=== PATIENT | male | born 1940 | race Caucasian/White ===

== ENCOUNTER 2017-05-23 09:51 | Emergency (ER) | payer MEDICARE, BC ==
[2017-05-23] MEDS ORDERED: Sodium Chloride 0.9% 10 ML Syringe FLUSH PRN ×2 (10:51)
--- NOTE | 2017-05-23 11:00 | EDM.PDOC ---
ED HPI GENERAL MEDICAL PROBLEM - General Chief Complaint: Neuro Symptoms/Deficits Stated Complaint: maybe a stroke??? Time Seen by Provider: 05/23/17 10:44 Source of Information: Reports: Patient, Family, RN Notes Reviewed History Limitations: Reports: No Limitations - History of Present Illness INITIAL COMMENTS - FREE TEXT/NARRATIVE: 77-year-old gentleman presents emergency department day with right arm weakness , he does have a history of CVA in the past however he had no deficit from that. Unfortunately he started experiencing symptoms at about 2300 last evening a presents to the emergency department today now 12 hours out from his initial deficit he has some movement in the right arm but he cannot lift it past 20 and he has a wrist drop. Denies any other symptoms - Related Data Allergies Allergy/AdvReac Type Severity Reaction Status Date / Time oxycodone AdvReac Severe Confusion Verified 07/30/16 14:17 Home Meds: Home Meds Aspirin [Halfprin] 81 mg PO DAILY 07/03/13 [History] Dutasteride [Avodart] 0.5 mg PO DAILY 07/03/13 [History] Hydrochlorothiazide/Lisinopril [Lisinopril-HCTZ 20-12.5 MG] 1 tab PO DAILY 07/03 [History] Metoprolol Succinate [Toprol XL 100mg] 100 mg PO DAILY 07/03/13 [History] Simvastatin [Zocor] 40 mg PO BEDTIME 07/03/13 [History] Warfarin [Coumadin] 1.5 tab PO DAILY 07/03/13 [History] Docusate Sodium [Colace] 100 mg PO BID 10/28/15 [History] Furosemide [Furosemide] 20 mg PO DAILY 05/23/17 [History] Past Medical History HEENT History: Reports: Cataract, Hard of Hearing, Impaired Vision Cardiovascular History: Reports: Afib, Arrhythmia, High Cholesterol, Hypertension Genitourinary History: Reports: Prostate Disorder Musculoskeletal History: Reports: Arthritis Neurological History: Reports: Concussion, TIA Hematologic History: Reports: Anticoagulation Therapy Oncologic (Cancer) History: Reports: Prostate - Infectious Disease History Infectious Disease History: Reports: Chicken Pox, Measles - Past Surgical History HEENT Surgical History: Reports: Cataract Surgery GI Surgical History: Reports: Colonoscopy Musculoskeletal Surgical History: Reports: Knee Replacement Social & Family History - Tobacco Use Smoking Status *Q: Never Smoker Second Hand Smoke Exposure: No - Caffeine Use Caffeine Use: Reports: Coffee - Alcohol Use Days Per Week of Alcohol Use: 1 Number of Drinks Per Day: 3 Total Drinks Per Week: 3 - Recreational Drug Use Recreational Drug Use: No ED ROS GENERAL - Review of Systems Review Of Systems: See Below Constitutional: Reports: No Symptoms HEENT: Reports: No Symptoms Respiratory: Reports: No Symptoms Cardiovascular: Reports: No Symptoms GI/Abdominal: Reports: No Symptoms : Reports: No Symptoms Musculoskeletal: Reports: No Symptoms Skin: Reports: No Symptoms Neurological: Reports: Weakness (Right arm) ED EXAM, NEURO - Physical Exam Exam: See Below Text/Narrative:: General: Male, not in any distress, alert and oriented x3 HEENT: head is atraumatic normocephalic, eyes pupils equal round reactive to light, sclera clear no conjunctivitis appreciated extraocular eye movements are intact. Ears tympanic membranes clear and beck landmarks and light reflex are present bilaterally canals are clear. Nose no septal deviation, nares are clear, no blood present. Mouth mucosa is moist and pink no erythema or exudate noted in soft palate, tongue is midline uvula is midline, dentition is intact. Neck: Supple no thyromegaly no tracheal deviation. Nodes: Cervical nodes subclavicular nodes nontender no palpable lymphadenopathy noted. Lungs: clear to auscultation bilaterally with symmetrical respirations, no adventitious noise appreciated. CV: Irregularly irregular rate and rhythm S1 and S2 appreciated no murmurs rubs or gallops noted. Abdomen: Soft, nontender, no palpable masses or organomegaly appreciated, no distention no guarding bowel sounds are present, . Neuro: Cranial nerves II through XII grossly intact, power is 5 x 5 in upper left extremity and lower extremities, power is 4 out of 5 on the right upper extremity, patellar reflex, biceps reflex +2 no dysdiadochokinesis no difficulty with rapid alternating movements can do [id number] without difficulty , has adequate gait no cerebellar dysfunction modified NIH stroke scale of 2 secondary to right arm deficit Skin: Warm and dry, intact Extremities: No lower extremity edema appreciated, pedal pulse is +2. Course - Vital Signs Last Recorded V/S: Last Vital Signs Temp 96.8 F 05/23/17 10:06 Pulse 84 05/23/17 10:06 Resp 18 05/23/17 10:06 BP 130/70 05/23/17 10:06 Pulse Ox 97 05/23/17 10:06 - Orders/Labs/Meds Orders: Active Orders 24 hr Category Date Time Status EKG Documentation Completion [RC] ASDIRECTED Care 05/23/17 10:52 Active Peripheral IV Care [RC] . DIRECTED Care 05/23/17 10:52 Active Sodium Chloride 0.9% [Saline Flush] Med 05/23/17 10:51 Active 10 ml FLUSH ASDIRECTED PRN Sodium Chloride 0.9% [Saline Flush] Med 05/23/17 10:51 Active 10 ml FLUSH ASDIRECTED PRN Peripheral IV Insertion Adult [OM.PC] Urgent Oth 05/23/17 10:51 Ordered EKG 12 Lead [EK] Urgent Ther 05/23/17 10:51 Ordered Medication Orders Sodium Chloride (Saline Flush) 10 ml FLUSH ASDIRECTED PRN PRN Reason: Keep Vein Open Last Admin: 05/23/17 11:20 Dose: 10 ml Sodium Chloride (Saline Flush) 10 ml FLUSH ASDIRECTED PRN PRN Reason: Keep Vein Open Last Admin: 05/23/17 11:20 Dose: 10 ml Labs: Laboratory Tests 05/23/17 05/23/17 05/23/17 Range/Units 11:06 11:06 11:06 WBC 6.6 (4.5-11.0) K/uL RBC 4.90 (4.30-5.90) M/uL Hgb 17.0 H (12.0-15.0) g/dL Hct 48.7 (40.0-54.0) % MCV 99 H (80-98) fL MCH 35 H (27-31) pg MCHC 35 (32-36) % Plt Count 157 (150-400) K/uL Neut % (Auto) 64 (36-66) % Lymph % (Auto) 22 L (24-44) % [place] % (Auto) 10 H (2-6) % Eos % (Auto) 2 (2-4) % Baso % (Auto) 1 (0-1) % PT 16.9 H (9.5-12.0) sec INR 1.55 H (0.80-1.20) APTT 32.4 (27.0-36.0) sec Sodium 140 (140-148) mmol/L Potassium 4.1 (3.6-5.2) mmol/L Chloride 103 (100-108) mmol/L Carbon Dioxide 32 (21-32) mmol/L Anion Gap 4.8 L (5.0-14.0) mmol/L BUN 29 H D (7-18) mg/dL Creatinine 1.6 H (0.8-1.3) mg/dL Est Cr Clr Drug Dosing 42.49 mL/min Estimated GFR (MDRD) 42 L (>60) Glucose 110 H (74-106) mg/dL Calcium 9.0 (8.5-10.1) mg/dL Total Bilirubin 1.2 H (0.2-1.0) mg/dL AST 29 (15-37) U/L ALT 30 (12-78) U/L Alkaline Phosphatase 101 (46-116) U/L Total Protein 7.9 (6.4-8.2) g/dL Albumin 3.5 (3.4-5.0) g/dL Globulin 4.4 H (2.3-3.5) g/dL Albumin/Globulin Ratio 0.8 L (1.2-2.2) Meds: Medications Generic Name Dose Route Start Last Admin Trade Name Freq PRN Reason Stop Dose Admin Sodium Chloride 10 ml 05/23/17 10:51 05/23/17 11:20 Saline Flush FLUSH 10 ml ASDIRECTED PRN Administration Keep Vein Open Sodium Chloride 10 ml 05/23/17 10:51 05/23/17 11:20 Saline Flush FLUSH 10 ml ASDIRECTED PRN Administration Keep Vein Open Departure - Departure Time of Disposition: 12:56 Disposition: DC/Tfer to Acute Hospital 02 Condition: Fair Clinical Impression: Cerebral infarction Qualifiers: Cerebral infarction mechanism: unspecified mechanism Qualified Code(s): I63.9 - Cerebral infarction, unspecified - Discharge Information Referrals: Juvenal Lacey MD [Primary Care Provider] - Forms: ED Department Discharge - My Orders Last 24 Hours: My Active Orders 05/23/17 10:51 Sodium Chloride 0.9% [Saline Flush] 10 ml FLUSH ASDIRECTED PRN Sodium Chloride 0.9% [Saline Flush] 10 ml FLUSH ASDIRECTED PRN Peripheral IV Insertion Adult [OM.PC] Urgent EKG 12 Lead [EK] Urgent 05/23/17 10:52 EKG Documentation Completion [RC] ASDIRECTED Peripheral IV Care [RC] . DIRECTED - Assessment/Plan Last 24 Hours: My Active Orders 05/23/17 10:51 Sodium Chloride 0.9% [Saline Flush] 10 ml FLUSH ASDIRECTED PRN Sodium Chloride 0.9% [Saline Flush] 10 ml FLUSH ASDIRECTED PRN Peripheral IV Insertion Adult [OM.PC] Urgent EKG 12 Lead [EK] Urgent 05/23/17 10:52 EKG Documentation Completion [RC] ASDIRECTED Peripheral IV Care [RC] . DIRECTED Plan: Assessment Acuity = acute Site and laterality = left parietal subacute cerebrovascular accident complicating the patient with known history of atrial fibrillation on chronic anticoagulation, history of prior CVA, hypertension and dyslipidemia Etiology = unclear etiology suspicious for subtherapeutic anticoagulation Manifestations = right arm weakness Location of injury = Home Lab values = CBC unremarkable, INR 1.55 subtherapeutic creatinine elevated 1.6 consistent with chronic renal failure stage G IIIB total bilirubin elevated 1.2 consistent hyperbilirubinemia EKG demonstrates atrial fibrillation CT scan demonstrates left parietal subacute infarction with moderate amount of atrophy Plan Called discussed case with Dr. Bradshaw who kindly accepted the patient in transport he will be transported via EMS services ground Patient was in agreement with the plan all questions were answered, This note was dictated using Touch-Writer voice recognition software please call with any questions.
--- NOTE | 2017-05-23 11:20 | CT ---
Head wo Cont HISTORY: Right arm weakness. Dose: Total DLP 934. COMPARISON: None FINDINGS: Extensive atrophy. 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 In the high left parietal lobe there is more confluent area of low attenuation measuring approximately 3 cm. This could represent subacute ischemia. This may be chronic as well. I have no prior films to confirm stability. There is no acute hemorrhage. No abnormal extra -axial fluid collections. Impression: 1. Extensive atrophy and chronic white matter change in the periventricular region. 2. More confluent area of low attenuation in the left parietal lobe I cannot exclude some subacute is chemia. Consider MRI scan with diffusion weighted images for differentiation. These findings were called to the ER physician at 11:15 AM hours.
[2017-05-23 13:07] VITALS: BP 122/83
== END 2017-05-23 13:25 ==
LOC: JP.ED 09:51
DX: I63.9 Cerebral infarction, unspecified (principal); I48.91 Unspecified atrial fibrillation; I10 Essential (primary) hypertension; M19.90 Unspecified osteoarthritis, unspecified site; E78.00 Pure hypercholesterolemia, unspecified; Z85.46 Personal history of malignant neoplasm of prostate; Z98.49 Cataract extraction status, unspecified eye; Z96.659 Presence of unspecified artificial knee joint; Z79.01 Long term (current) use of anticoagulants; Z79.82 Long term (current) use of aspirin; Z79.899 Other long term (current) drug therapy; Z88.5 Allergy status to narcotic agent
CPT/HCPCS: 36415; 70450; 80053; 85025; 85610; 85730; 93005; 99285; J7050; 93010

== ENCOUNTER 2019-02-13 07:23 | Day surgery (SDC) | payer BC, MEDICARE ==
[~2019-02-13 07:23] MED LIST: Midazolam 1 MG/ML 2 ML SDV ONE; Propofol 200 MG/20 ML SDV ONE; fentaNYL 100 MCG/2 ML SDV ONE
[2019-02-13] MEDS ORDERED: Sodium Chloride 0.9% 1,000 ML IV SCH (08:15)
[2019-02-13 10:10] VITALS: BP 90/67
--- NOTE | 2019-02-14 08:13 | OR ---
DATE OF PROCEDURE: 02/13/2019 SURGEON: Hernan Breaux MD PREOPERATIVE DIAGNOSIS: Screening/history of gastrointestinal bleeding. POSTOPERATIVE DIAGNOSIS: Screening/history of gastrointestinal bleeding. PROCEDURE: Colonoscopy. FINDINGS: 1. Cecal polyp, approximately 5 mm, completely removed using cold biopsy forceps. 2. Rectal polyp, approximately 1 cm, completely removed using hot snare. 3. Diverticulosis, moderate, extending into transverse colon without evidence of diverticulitis or bleeding. COMPLICATIONS: None. SCIENTIFIC SPECIALIST: None. ANESTHESIA: MAC. RISKS: Risks, benefits, alternatives, and limitations including, but not limited to infection, bleeding, and perforation were explained to the patient and wished to proceed. PROCEDURE IN DETAIL: The patient was placed in left lateral decubitus position. Digital rectal exam was performed without abnormalities, except for small external hemorrhoids. The scope was introduced and advanced atraumatically to the ileocecal valve. A photo was taken of this. Within the cecum, there was a small polyp which was completely removed using cold biopsy forceps. As the scope was moved through the ascending, transverse, descending colon, and retroflexed, a rectal polyp was identified and completely removed using hot snare. Diverticulosis is described as mild, limited to sigmoid colon, and without evidence of diverticulitis or bleeding. The patient tolerated the procedure well. Hernan Breaux MD /[id number]
== END 2019-02-13 10:42 | disposition home or self-care (01) ==
LOC: JP.SDS 07:23
PROVIDERS: ATTEND Surgery
DX: Z12.11 Encounter for screening for malignant neoplasm of colon (principal); D12.0 Benign neoplasm of cecum; D12.8 Benign neoplasm of rectum; K57.30 Diverticulosis of large intestine without perforation or abscess without bleeding; K64.4 Residual hemorrhoidal skin tags; I48.91 Unspecified atrial fibrillation; I12.9 Hypertensive chronic kidney disease with stage 1 through stage 4 chronic kidney disease, or unspecified chronic kidney disease; N18.9 Chronic kidney disease, unspecified; E78.00 Pure hypercholesterolemia, unspecified; Z88.5 Allergy status to narcotic agent; Z86.73 Personal history of transient ischemic attack (TIA), and cerebral infarction without residual deficits
CPT/HCPCS: 45380; 45385; 88305; J2250; J2704; J3010; J7030

== ENCOUNTER 2022-01-09 16:14 | Observation (INO) | payer MEDICARE ==
[2022-01-09] MEDS ORDERED: Sodium Chloride 0.9% 10 ML Syringe FLUSH PRN ×2 (17:14→20:31)
[2022-01-09] MEDS ORDERED: Lactated Ringers 1,000 ML IV SCH (17:15)
[2022-01-09 17:29] LABS: CORONAVIRUS COVID-19 NAA NEGATIVE (NEGATIVE)
[2022-01-09 17:56] LABS: TROPONIN I HIGH SENSITIVITY 19.8 pg/mL (<=60.3)
[2022-01-09] MEDS ORDERED: Sodium Chloride 0.9% 1,000 ML IV SCH (19:00)
[2022-01-09] MEDS ORDERED: Ondansetron 4 MG/2 ML SDV IV PRN (20:31)
[2022-01-09] MEDS: Sodium Chloride 0.9% 1,000 ML IV SCH (20:54)
[2022-01-09] MEDS ORDERED: Non-Formulary Medication 1 Each (Atorvastatin [Lipitor] 80 MG Tablet) PO SCH (21:00)
[2022-01-10] MEDS ORDERED: Potassium Chloride 20 MEQ Tab.ER PO ONE ×2 (09:00→17:00)
[2022-01-10] MEDS ORDERED: Non-Formulary Medication 1 Each (Citalopram Hydrobromide [Celexa] 40 MG Tablet) PO SCH (09:00)
[2022-01-10] MEDS: Sodium Chloride 0.9% 1,000 ML IV SCH (12:55)
[2022-01-10] MEDS: Acetaminophen 325 MG Tab PO PRN ×2 (13:01→23:29)
[2022-01-10] MEDS: DUTASTERIDE 0.5 MG PO SCH (15:56)
[2022-01-10] MEDS: CITALOPRAM 40MG TAB (PTOM) PO SCH (15:56)
[2022-01-10] MEDS: DONEPEZIL 10 MG PO SCH (20:51)
[2022-01-10] MEDS ORDERED: ATORVASTATIN 80MG TAB (PTOM) PO SCH (21:00)
[2022-01-11] MEDS ORDERED: Warfarin 5 MG Tab PO SCH ×2 (08:30)
[2022-01-11] MEDS: DUTASTERIDE 0.5 MG PO SCH (10:36)
[2022-01-11] MEDS: CITALOPRAM 40MG TAB (PTOM) PO SCH (10:37)
[2022-01-11 11:01] VITALS: BP 122/84; PULSE 72
[2022-01-11] MEDS ORDERED: Warfarin 2.5 MG Tab PO ONE (13:00)
[2022-01-11] MEDS ORDERED: Metoprolol Succinate 50 MG Tab.ER PO SCH (13:00)
== END 2022-01-11 16:09 | disposition home or self-care (01) ==
LOC: JP.ED 16:14 → JP.MS 18:17
PROVIDERS: ADMIT Hospitalist; ATTEND Hospitalist
DX: A08.4 Viral intestinal infection, unspecified (principal); E86.0 Dehydration; I95.9 Hypotension, unspecified; E78.00 Pure hypercholesterolemia, unspecified; I10 Essential (primary) hypertension; I48.91 Unspecified atrial fibrillation; E66.9 Obesity, unspecified; Z86.73 Personal history of transient ischemic attack (TIA), and cerebral infarction without residual deficits; Z98.890 Other specified postprocedural states; Z88.5 Allergy status to narcotic agent; Z79.899 Other long term (current) drug therapy; Z79.01 Long term (current) use of anticoagulants; Z20.822 Contact with and (suspected) exposure to COVID-19
CPT/HCPCS: 0241U; 36415; 73502-26-RT; 73502-RT; 80048; 80053; 83605; 84145; 84484; 85025; 85610; 86140; 97110-GP; 97162-GP; 97530-GP; 97535-GP; 99283; 99285-25; A9270-GY; G0378; J3430; J3490; J7030; J7120

== ENCOUNTER 2022-01-20 14:39 | Inpatient (IN) | payer MEDICARE ==
[2022-01-20] MEDS ORDERED: Sodium Chloride 0.9% 500 ML IV ONE (15:33)
[2022-01-20] MEDS ORDERED: Ondansetron 4 MG/2 ML SDV IVPUSH ONE (15:49)
[2022-01-20] MEDS ORDERED: fentaNYL 50 MCG/ML SDV IVPUSH ONE (15:49)
[2022-01-20] MEDS: Sodium Chloride 0.9% 10 ML Syringe FLUSH PRN (16:09)
[2022-01-20 16:11] LABS: TROPONIN I HIGH SENSITIVITY 9.9 pg/mL (<=60.3)
[2022-01-20] MEDS ORDERED: HYDROmorphone 0.5 MG/0.5 ML Syringe IVPUSH ONE (16:32)
[2022-01-20] MEDS ORDERED: Ampicillin/Sulbactam Na 3 GM in Sodium Chloride 0.9% 100 ML IV ONE (16:33)
[2022-01-20 18:29] LABS: CORONAVIRUS COVID-19 NAA NEGATIVE (NEGATIVE)
[2022-01-20] MEDS ORDERED: LORazepam 2 MG/ML SDV IVPUSH PRN (19:10)
[2022-01-20] MEDS ORDERED: Acetaminophen 325 MG Tab PO PRN (19:10)
[2022-01-20] MEDS ORDERED: Ondansetron 4 MG Tab.DIS PO PRN (19:10)
[2022-01-20] MEDS ORDERED: Sodium Chloride 0.9% 1,000 ML IV SCH (19:10)
[2022-01-20] MEDS ORDERED: Magnesium Hydroxide 400 MG/5 ML Susp 30 ML Cup PO PRN (19:10)
[2022-01-20] MEDS ORDERED: Phytonadione 5 MG in Sodium Chloride 0.9% 50 ML IV ONE (19:10)
[2022-01-20] MEDS ORDERED: Potassium Chloride 20 MEQ, Lidocaine 1% 2 ML in Sodium Chloride 0.9% 100 ML IV SCH (19:30)
[2022-01-20] MEDS ORDERED: Pantoprazole 40 MG Vial IV SCH (20:00)
[2022-01-20] MEDS ORDERED: Potassium Chloride 20 MEQ in Premix Bag 2 BAG IV ONE (20:36)
[2022-01-20] MEDS: atorvaSTATin 20 MG Tab PO SCH (21:28)
[2022-01-20] MEDS: Lactobacillus Rhamnosus GG (Probiotic) Cap PO SCH (21:29)
[2022-01-20] MEDS: Lidocaine 1% 5 ML VIAL INJECT PRN (21:30)
[2022-01-20] MEDS: Potassium Chloride 20 MEQ in Premix Bag 1 BAG IV SCH (21:30)
[2022-01-20] MEDS: Melatonin 3 MG Tab PO SCH (21:31)
[2022-01-20] MEDS: HYDROmorphone 1 MG/ML Syringe IVPUSH PRN (22:16)
[2022-01-20] MEDS: Ondansetron 4 MG/2 ML SDV IV PRN (22:26)
[2022-01-20] MEDS: Ampicillin/Sulbactam Na 3 GM in Sodium Chloride 0.9% 100 ML IV SCH (23:28)
[2022-01-21] MEDS: Potassium Chloride 20 MEQ in Premix Bag 1 BAG IV SCH (00:06)
[2022-01-21] MEDS: Lidocaine 1% 5 ML VIAL INJECT PRN (00:06)
[2022-01-21] MEDS: HYDROmorphone 1 MG/ML Syringe IVPUSH PRN ×3 (01:43→10:36)
[2022-01-21] MEDS: Ampicillin/Sulbactam Na 3 GM in Sodium Chloride 0.9% 100 ML IV SCH ×4 (04:58→23:52)
[2022-01-21] MEDS ORDERED: Bupivacaine 0.5% 50 ML MDV ONE (07:19)
[2022-01-21] MEDS ORDERED: Lidocaine 1% with EPINEPHrine 1:100,000 50 ML MDV ONE (07:20)
[2022-01-21] MEDS ORDERED: Succinylcholine 200 MG/10 ML MDV ONE (07:29)
[2022-01-21] MEDS ORDERED: Ondansetron 4 MG/2 ML SDV ONE (07:29)
[2022-01-21] MEDS ORDERED: Dexamethasone 4 MG/ML SDV ONE (07:29)
[2022-01-21] MEDS ORDERED: Neostigmine Methylsulfate 1 MG/ML 5 ML Syringe ONE (07:29)
[2022-01-21] MEDS: Sodium Chloride 0.9% 10 ML Syringe FLUSH PRN (07:29)
[2022-01-21] MEDS ORDERED: Propofol 200 MG/20 ML SDV ONE (07:29)
[2022-01-21] MEDS ORDERED: Rocuronium 50 MG/5 ML Vial ONE (07:29)
[2022-01-21] MEDS ORDERED: Glycopyrrolate 0.2 MG/ML 5 ML MDV ONE (07:29)
[2022-01-21] MEDS ORDERED: fentaNYL 250 MCG/5 ML SDV ONE (07:31)
[2022-01-21] MEDS: Ondansetron 4 MG/2 ML SDV IV PRN (07:41)
[2022-01-21] MEDS ORDERED: Ropivacaine 44 ML, dexAMETHasone 8 MG, EPINEPHrine 0.4 MG, Sodium Chloride 0.9% 33.6 ML NERVRT SCH ×4 (08:00)
[2022-01-21] MEDS ORDERED: Phenylephrine 1% 10 MG/ML SDV ONE (08:26)
[2022-01-21] MEDS ORDERED: Sodium Chloride 0.9% 1,000 ML IV SCH (12:00)
[2022-01-21] MEDS: Citalopram 20 MG Tab PO SCH (12:27)
[2022-01-21] MEDS: Lactobacillus Rhamnosus GG (Probiotic) Cap PO SCH ×2 (12:28→21:04)
[2022-01-21] MEDS: Dutasteride 0.5 MG Cap PO SCH (12:28)
[2022-01-21] MEDS ORDERED: Warfarin 5 MG Tab PO SCH (13:00)
[2022-01-21] MEDS: traMADol 50 MG Tab PO PRN ×2 (17:06→21:07)
[2022-01-21] MEDS ORDERED: Haloperidol Lactate 5 MG/ML SDV IVPUSH ONE (20:51)
[2022-01-21] MEDS: Melatonin 3 MG Tab PO SCH (21:04)
[2022-01-21] MEDS: atorvaSTATin 20 MG Tab PO SCH (21:04)
[2022-01-21] MEDS: Pantoprazole 40 MG Tab.CR PO SCH (21:04)
[2022-01-22] MEDS: Ampicillin/Sulbactam Na 3 GM in Sodium Chloride 0.9% 100 ML IV SCH ×2 (04:52→10:26)
[2022-01-22] MEDS: traMADol 50 MG Tab PO PRN ×4 (05:53→21:39)
[2022-01-22] MEDS: Lactobacillus Rhamnosus GG (Probiotic) Cap PO SCH ×2 (09:26→21:36)
[2022-01-22] MEDS: Dutasteride 0.5 MG Cap PO SCH (09:26)
[2022-01-22] MEDS: Citalopram 20 MG Tab PO SCH (09:26)
[2022-01-22] MEDS ORDERED: Potassium Chloride 20 MEQ Tab.ER PO ONE (10:20)
[2022-01-22] MEDS ORDERED: Tamsulosin 0.4 MG Cap.ER PO ONE (10:30)
[2022-01-22] MEDS: Warfarin 5 MG Tab PO SCH (14:30)
[2022-01-22] MEDS: Amoxicillin/Clavulanate K 875-125 MG Tab PO SCH (21:36)
[2022-01-22] MEDS: atorvaSTATin 20 MG Tab PO SCH (21:36)
[2022-01-22] MEDS: Melatonin 3 MG Tab PO SCH (21:36)
[2022-01-22] MEDS: Pantoprazole 40 MG Tab.CR PO SCH (21:37)
[2022-01-23] MEDS: Lactobacillus Rhamnosus GG (Probiotic) Cap PO SCH ×2 (08:00→21:16)
[2022-01-23] MEDS: Amoxicillin/Clavulanate K 875-125 MG Tab PO SCH ×2 (08:00→21:16)
[2022-01-23] MEDS: Dutasteride 0.5 MG Cap PO SCH (08:01)
[2022-01-23] MEDS: Tamsulosin 0.4 MG Cap.ER PO SCH (08:01)
[2022-01-23] MEDS: Citalopram 20 MG Tab PO SCH (08:01)
[2022-01-23] MEDS ORDERED: HYDROmorphone 0.5 MG/0.5 ML Syringe IVPUSH PRN (10:29)
[2022-01-23] MEDS: Warfarin 5 MG Tab PO SCH (14:20)
[2022-01-23] MEDS: Melatonin 3 MG Tab PO SCH (21:17)
[2022-01-23] MEDS: atorvaSTATin 20 MG Tab PO SCH (21:17)
[2022-01-23] MEDS: Pantoprazole 40 MG Tab.CR PO SCH (21:17)
[2022-01-24] MEDS: Amoxicillin/Clavulanate K 875-125 MG Tab PO SCH (08:40)
[2022-01-24] MEDS: Citalopram 20 MG Tab PO SCH (08:40)
[2022-01-24] MEDS: Lactobacillus Rhamnosus GG (Probiotic) Cap PO SCH (08:40)
[2022-01-24] MEDS: Tamsulosin 0.4 MG Cap.ER PO SCH (08:41)
[2022-01-24] MEDS: Dutasteride 0.5 MG Cap PO SCH (08:41)
[2022-01-24] MEDS ORDERED: Potassium Chloride 20 MEQ Tab.ER PO ONE (09:00)
[2022-01-24 10:28] VITALS: BP 132/84; PULSE 92
[2022-01-24] MEDS: Warfarin 5 MG Tab PO SCH (12:15)
== END 2022-01-24 13:50 | disposition home health service (06) | DRG 418 ==
LOC: JP.ED 14:39 → JP.MS 17:42
PROVIDERS: ADMIT Internal Medicine; ATTEND Hospitalist
PROC: 0FT44ZZ Resection of Gallbladder, Percutaneous Endoscopic Approach (ICD-10-PCS; principal; 2022-01-21)
DX: K81.0 Acute cholecystitis (principal); I48.21 Permanent atrial fibrillation; E86.0 Dehydration; N18.32 Chronic kidney disease, stage 3b; K82.A1 Gangrene of gallbladder in cholecystitis; R41.89 Other symptoms and signs involving cognitive functions and awareness; E87.6 Hypokalemia; I27.20 Pulmonary hypertension, unspecified; I12.9 Hypertensive chronic kidney disease with stage 1 through stage 4 chronic kidney disease, or unspecified chronic kidney disease; M19.90 Unspecified osteoarthritis, unspecified site; E66.9 Obesity, unspecified; Z96.659 Presence of unspecified artificial knee joint; R79.1 Abnormal coagulation profile; H54.7 Unspecified visual loss; Z88.6 Allergy status to analgesic agent; H91.90 Unspecified hearing loss, unspecified ear; Z20.822 Contact with and (suspected) exposure to COVID-19; E78.00 Pure hypercholesterolemia, unspecified; G30.9 Alzheimer's disease, unspecified; F02.80 Dementia in other diseases classified elsewhere, unspecified severity, without behavioral disturbance, psychotic disturbance, mood disturbance, and anxiety; I67.9 Cerebrovascular disease, unspecified; Z79.01 Long term (current) use of anticoagulants; Z79.899 Other long term (current) drug therapy; Z90.49 Acquired absence of other specified parts of digestive tract; Z86.73 Personal history of transient ischemic attack (TIA), and cerebral infarction without residual deficits; Z98.49 Cataract extraction status, unspecified eye; Z85.46 Personal history of malignant neoplasm of prostate; Z88.5 Allergy status to narcotic agent; Z68.29 Body mass index [BMI] 29.0-29.9, adult
CPT/HCPCS: 0241U; 36415; 36430; 70450; 74176; 80053; 83605; 83690; 83735; 84484; 85025; 85027; 85610; 86140; 86850; 86900; 86901; 87070; 87075; 87205; 93005; 93010; 96365; 96375; 97110-GP; 97162-GP; 97530-GP; 97535-GP; 99285; 99285-25; A9270-GY; C9113; J0171; J0295; J0330; J1100; J1170; J1630; J2370; J2405; J2704; J2710; J2795; J3010; J3430; J3480; J3490; J7030; J7040; P9017

== ENCOUNTER 2022-10-24 19:27 | Emergency (ER) | payer MEDICARE ==
[2022-10-24 22:00] VITALS: BP 127/89; PULSE 85
== END 2022-10-24 23:00 | disposition home or self-care (01) ==
LOC: JP.ED 19:27
DX: R60.0 Localized edema (principal); I48.91 Unspecified atrial fibrillation; E78.00 Pure hypercholesterolemia, unspecified; I12.9 Hypertensive chronic kidney disease with stage 1 through stage 4 chronic kidney disease, or unspecified chronic kidney disease; N18.30 Chronic kidney disease, stage 3 unspecified; E66.9 Obesity, unspecified; Z68.29 Body mass index [BMI] 29.0-29.9, adult; Z88.5 Allergy status to narcotic agent; Z79.01 Long term (current) use of anticoagulants; Z79.899 Other long term (current) drug therapy
CPT/HCPCS: 93971-RT; 99282; 99283